=== PATIENT | male | born 1970 ===

== ENCOUNTER 2017-03-08 15:36 | Emergency (ER) | payer MEDICAID, OTHER ==
[2017-03-08] MEDS ORDERED: Alum-Mag Hydrox-Simethicone Susp (30 mL) PO STA (16:26)
--- NOTE | 2017-03-08 16:34 | ED PDOC ---
HPI: Chest Pain Time Seen by Provider: 03/08/17 16:05 Chief Complaint (Nursing): Chest Pain Chief Complaint (Provider): Chest pain History Per: Patient History/Exam Limitations: no limitations Onset/Duration Of Symptoms: Days Current Symptoms Are (Timing): Intermittent Episodes Additional Complaint(s): Patient is a 46 y/o male with no significant past medical history presenting to the emergency department for intermittent chest pain ongoing for several days. Describes the pain as a burning sensation that is worse when eating food ( occurring especially when eating late or in large amounts) or lying down. In addition, it is accompanied by the sensation of food coming up. Also notes that the sensation has been an ongoing problem, on and off, for two years. Reports taking omeprazole with no significant relief. Denies vomiting, shortness of breath, surgical history, or other complaints. PCP: Buddy smith Past Medical History Reviewed: Historical Data, Nursing Documentation, Vital Signs Vital Signs: Last Vital Signs Temp 98.2 F 03/08/17 15:48 Pulse 75 03/08/17 18:34 Resp 16 03/08/17 15:48 BP 120/81 03/08/17 15:48 Pulse Ox 100 03/08/17 18:34 - Medical History PMH: No Chronic Diseases - Surgical History Surgical History: No Surg Hx - Family History Family History: States: No Known Family Hx - Social History Current smoker - smoking cessation education provided: No Ex-Smoker (has not smoked in the last 12 months): No Alcohol: None Drugs: Denies - Home Medications Home Medications: Ambulatory Orders Medication Instructions Recorded Esomeprazole Magnesium [Nexium] 20 mg PO DAILY #30 capsule.dr 03/08/17 Famotidine [Pepcid] 20 mg PO DAILY #14 tab 03/08/17 Sucralfate [Carafate] 1 gm PO HS #30 oral.susp 03/08/17 - Allergies Allergies/Adverse Reactions: Allergies Allergy/AdvReac Type Severity Reaction Status Date / Time aspirin Allergy RASH Verified 03/08/17 15:48 Penicillins Allergy RASH Verified 03/08/17 15:48 NAMRATA Risk Score for UA/NSTEMI - NAMRATA Risk Score Age > 64: NO 3 or more CAD Risk Factors: NO Known CAD (Stenosis greater than 50%): NO Aspirin use in past 7 days: NO Severe Angina: NO EKG ST changes greater than 0.5mm: NO Positive Cardiac Marker: NO NAMRATA Score: 0 Risk %: 5% Wells Criteria for PE - Wells Criteria for Pulmonary Embolism Clinical Signs and Symptoms of DVT: No P.E is #1 Diagnosis, or Equally Likely: No Heart Rate >100: No Immobilization at least 3 days;Surgery previous 4 weeks: No Previous, objectively diagnosed PE or DVT: No Hemoptysis: No Malignancy w/treatment within 6 months, or palliative: No Total Score: 0 Review of Systems ROS Statement: Except As Marked, All Systems Reviewed And Found Negative Cardiovascular: Positive for: Chest Pain (intermittent) Respiratory: Negative for: Shortness of Breath Gastrointestinal: Negative for: Vomiting Physical Exam - Reviewed Nursing Documentation Reviewed: Yes Vital Signs Reviewed: Yes - Physical Exam Appears: Positive for: Well, Non-toxic, No Acute Distress Head Exam: Positive for: ATRAUMATIC, NORMAL INSPECTION, NORMOCEPHALIC Skin: Positive for: Normal Color, Warm, Dry Eye Exam: Positive for: Normal appearance Neck: Positive for: Normal, Painless ROM, Supple Cardiovascular/Chest: Positive for: Regular Rate, Rhythm. Negative for: Murmur Respiratory: Positive for: Normal Breath Sounds. Negative for: Accessory Muscle Use, Respiratory Distress Gastrointestinal/Abdominal: Positive for: Normal Exam Extremity: Positive for: Normal ROM. Negative for: Pedal Edema Neurologic/Psych: Positive for: Alert, Oriented (x3) - Laboratory Results Result Diagrams: 03/08/17 17:07 03/08/17 17:07 - ECG ECG: Positive for: Interpreted By Me, Viewed By Me ECG Rhythm: Positive for: Normal QRS, Normal ST Segment, Sinus Rhythm. Negative for: ST/T Changes Rate: 75 O2 Sat by Pulse Oximetry: 100 (RA) Pulse Ox Interpretation: Normal - Progress Re-evaluation Time: 18:32 Condition: Re-examined, Improved Medical Decision Making Medical Decision Making: Time: 16:25 Initial impression: Chest pain. Acute coronary artery syndrome. Gastroesophageal reflux disease (most likely). Initial plan: Labs EKG Pepcid 20 mg IVP Maalox Plus 30 mL Lidocaine 2% 15 mL battery container tester continued Reevaluation Scribe Attestation: Documented by Caty Stevenson, acting as a scribe for Alexandro Santos MD. Provider Scribe Attestation: All medical record entries made by the Scribe were at my direction and personally dictated by me. I have reviewed the chart and agree that the record accurately reflects my personal performance of the history, physical exam, medical decision making, and the department course for this patient. I have also personally directed, reviewed, and agree with the discharge instructions and disposition. Disposition - Clinical Impression Clinical Impression: Chest pain, GERD (gastroesophageal reflux disease) - Patient ED Disposition Is Patient to be Admitted: No Doctor Will See Patient In The: Office Counseled Patient/Family Regarding: Studies Performed, Diagnosis, Need For Followup - Disposition Referrals: Genna PEREZ,MD Amador [Medical Doctor] - Disposition: Routine/Home Disposition Time: 18:32 Condition: GOOD Additional Instructions: Take your medications as instructed. Follow up with your PCP in 2-3 days. Prescriptions: Esomeprazole Magnesium [Nexium] 20 mg PO DAILY #30 capsule. Famotidine [Pepcid] 20 mg PO DAILY #14 tab Sucralfate [Carafate] 1 gm PO HS #30 oral.susp Instructions: Chest Pain (ED), Gastroesophageal Reflux Disease (ED) Forms: [employer] (Portuguese)
[2017-03-08 17:11] LABS: BASO # 0.1 K/uL (0.0-0.2); BASO % 0.9 % (0.0-2.0); EOS # 0.6 K/uL (0.0-0.7); EOS % 8.8 % (0.0-4.0); HEMATOCRIT 39.9 % (35.0-51.0); LYMPH % 14.2 % (20.0-40.0); MEAN CELL VOLUME 89.1 fl (80.0-94.0); MEAN CORPUSCULAR HEMOGLOBIN 29.4 pg (27.0-31.0); MEAN PLATELET VOLUME 8.6 fl (7.2-11.7); MONO # 0.4 K/uL (0.0-0.8); MONO % 6.1 % (0.0-10.0); NEUT # 4.8 K/uL (1.8-7.0); RED CELL DISTRIBUTION WIDTH 12.4 % (11.5-14.5); WHITE BLOOD COUNT 6.9 K/uL (4.8-10.8)
[2017-03-08] MEDS ORDERED: Alum-Mag Hydrox-Simethicone Susp (30 mL) ONE (17:14)
[2017-03-08 17:20] LABS: BLOOD UREA NITROGEN 16 mg/dl (9-20); CALCIUM 8.7 mg/dL (8.4-10.2); CARBON DIOXIDE 26 mmol/L (22-30); CHLORIDE 103 mmol/L (98-107); GFR AFRICAN-AMERICAN > 60; GLUCOSE,RANDOM 86 mg/dL (75-110); POTASSIUM 4.6 MMOL/L (3.6-5.0); SODIUM 142 mmol/l (132-148)
[2017-03-08 19:04] VITALS: BP 120/75; PULSE 78; RESP 18; TEMP 97; O2SAT 98
--- NOTE | 2017-03-09 10:43 | CARD ---
APPROVED REPORT EKG Measurement Heart [id number] <Conclusion> Normal sinus rhythm Incomplete right bundle branch block Borderline ECG
== END 2017-03-08 19:04 | disposition home or self-care (01) ==
LOC: H.ER 15:36
DX: K21.9 Gastro-esophageal reflux disease without esophagitis (principal); Z88.0 Allergy status to penicillin